=== PATIENT | female | born 1950 | race American Indian/Alaskan Native ===

== ENCOUNTER 2017-06-23 12:26 | Outpatient (CLI) | payer MEDICARE ==
--- NOTE | 2017-06-23 13:58 | XRay Report ---
LEFT KNEE, 3 views: History: Left knee pain and swelling. A large joint effusion is identified on the lateral image. Subtle fracture lines are identified in the inferior third of the patella. The distal femur and proximal tibia/fibular are intact. Mild osteopenia is suspected. IMPRESSION: Patellar fracture. Large joint effusion.
== END 2017-06-23 12:27 | disposition home or self-care (01) ==
LOC: VAS 12:26
PROVIDERS: ATTEND Internal Medicine
DX: S82.002A Unspecified fracture of left patella, initial encounter for closed fracture (principal); M25.462 Effusion, left knee; M79.662 Pain in left lower leg; Z91.81 History of falling; Y93.89 Activity, other specified; Y92.89 Other specified places as the place of occurrence of the external cause; Y99.8 Other external cause status

== ENCOUNTER 2017-10-14 11:47 | Outpatient (CLI) | payer MEDICARE ==
--- NOTE | 2017-10-14 16:18 | Mammography Report ---
BILATERAL DIGITAL SCREENING MAMMOGRAM with CAD: 10/14/17 11:47:00 CLINICAL: Routine screening. COMPARISON: 03/06/15 FINDINGS: There are bilateral scattered areas of fibroglandular density.No mass, architectural distortion or suspicious calcifications. IMPRESSION: No mammographic evidence of malignancy. BI-RADS CATEGORY: 1 -- Negative RECOMMENDATION: Routine mammographic screening in one year. COMMENT: Patient follow-up letters are generated by our [employer] application.
== END 2017-10-14 11:48 | disposition home or self-care (01) ==
LOC: MAMMO 11:47
PROVIDERS: ATTEND Internal Medicine
DX: Z12.31 Encounter for screening mammogram for malignant neoplasm of breast (principal)
CPT/HCPCS: 77067